=== PATIENT | female | born 1930 | race Caucasian/White ===

== ENCOUNTER 2016-12-11 03:05 | Inpatient (IN) | payer MEDICARE, OTHER ==
[~2016-12-11] VITALS: Ht 160 cm; Wt 65.6 kg
[2016-12-11] MEDS ORDERED: FENO135C4 PO (03:24)
[2016-12-11] MEDS ORDERED: ASPI-515 PO (03:24)
[2016-12-11] MEDS ORDERED: METO25TA91 PO (03:24)
[2016-12-11] MEDS ORDERED: SIMV40TA3 PO (03:24)
[2016-12-11] MEDS ORDERED: SODIUM CHLORIDE 0.9% 1,000ML IVBOLUS ONE (03:30)
[2016-12-11] MEDS ORDERED: HYDROmorphone 1 MG/ML, 1ML IVPush PRN (03:30)
[2016-12-11] MEDS ORDERED: ONDANSETRON 2MG/ML, 2ML IVPush ONE (03:30)
[2016-12-11 03:54] LABS: ASPARTATE AMINO TRANSFERASE 28 U/L (15-37); BLOOD UREA NITROGEN 17 mg/dL (7-18)
[2016-12-11] MEDS ORDERED: HYDROmorphone 1 MG/ML, 1ML ONE (03:58)
[2016-12-11] MEDS ORDERED: ONDANSETRON 2MG/ML, 2ML ONE ×2 (03:58→07:00)
[2016-12-11] MEDS ORDERED: PLEASE ENTER ALLERGIES MC SCH ×2 (04:00)
[2016-12-11 04:01] LABS: IS PT STATUS REG ER OR PRE ER? YES
[2016-12-11] MEDS ORDERED: OMNIPAQUE 350 MG/ML, 100ML BOTTLE ONE (05:23)
[2016-12-11] MEDS: SODIUM CHLORIDE 0.9% 1,000ML IVBOLUS ONE ×2 (06:01→07:01)
[2016-12-11] MEDS ORDERED: SODIUM CHLORIDE 0.9% 1,000 ML IV ONE (06:45)
[2016-12-11] MEDS ORDERED: MORPHINE SULFATE 4 MG/ML, 1ML IVPush PRN (07:00)
[2016-12-11] MEDS ORDERED: ONDANSETRON 2MG/ML, 2ML IVPush PRN (07:00)
[2016-12-11] MEDS ORDERED: PIPERACILLIN/TAZO/PMX 3.375GM 50 ML IVPB ONE (07:00)
[2016-12-11 08:30] VITALS: BP 176/86
[2016-12-11] MEDS ORDERED: ENALAPRILAT 1.25 MG/ML, 2ML IVPush PRN (08:30)
[2016-12-11] MEDS ORDERED: LABETALOL 5MG/ML, 20ML IV PRN (08:30)
[2016-12-11] MEDS ORDERED: ONDANSETRON 2MG/ML, 2ML IVP PRN (08:30)
[2016-12-11 10:11] LABS: IS PT STATUS REG ER OR PRE ER? NO
[2016-12-11] MEDS: SODIUM CHLORIDE 0.9% 1,000 ML IV SCH ×2 (10:42→21:24)
[2016-12-11] MEDS: HYDROmorphone 2 MG/ML, 1ML IV PRN ×2 (10:42→17:37)
[2016-12-11] MEDS: METOPROLOL 1 MG/ML, 5ML IVPush SCH ×3 (10:42→21:24)
[2016-12-11] MEDS: ENOXAPARIN 40 MG/0.4 ML SQ SCH (10:42)
[2016-12-11] MEDS: PIPERACILLIN/TAZO/PMX 3.375GM 50 ML IV SCH ×3 (11:05→21:24)
[2016-12-11 13:44] VITALS: BP 132/76
[2016-12-11 14:46] LABS: IS PT STATUS REG ER OR PRE ER? NO
[2016-12-11 20:03] VITALS: BP 131/76
[2016-12-12 02:50] VITALS: BP 125/75
[2016-12-12] MEDS: PIPERACILLIN/TAZO/PMX 3.375GM 50 ML IV SCH ×5 (05:10→21:23)
[2016-12-12] MEDS: METOPROLOL 1 MG/ML, 5ML IVPush SCH ×5 (05:11→21:23)
[2016-12-12] MEDS: HYDROmorphone 2 MG/ML, 1ML IV PRN ×2 (05:56→15:29)
[2016-12-12 06:38] LABS: ASPARTATE AMINO TRANSFERASE 41 U/L (15-37); BLOOD UREA NITROGEN 21 mg/dL (7-18)
[2016-12-12 07:10] VITALS: BP 105/66
[2016-12-12] MEDS: SODIUM CHLORIDE 0.9% 1,000 ML IV SCH ×2 (10:17→21:25)
[2016-12-12] MEDS: ENOXAPARIN 40 MG/0.4 ML SQ SCH (10:18)
[2016-12-12 14:29] VITALS: BP 135/76
[2016-12-12 20:37] VITALS: BP 119/75
[2016-12-13 01:38] VITALS: BP 98/62
[2016-12-13] MEDS: PIPERACILLIN/TAZO/PMX 3.375GM 50 ML IV SCH ×3 (03:06→15:03)
[2016-12-13] MEDS: METOPROLOL 1 MG/ML, 5ML IVPush SCH ×4 (05:28→21:58)
[2016-12-13 06:38] LABS: BLOOD UREA NITROGEN 52 mg/dL (7-18)
[2016-12-13 06:42] LABS: ASPARTATE AMINO TRANSFERASE 295 U/L (15-37)
[2016-12-13 06:50] VITALS: BP 92/47
[2016-12-13] MEDS: HYDROmorphone 2 MG/ML, 1ML IV PRN ×2 (09:55→15:07)
[2016-12-13] MEDS: ENOXAPARIN 30 MG/0.3 ML SQ SCH (09:55)
[2016-12-13 11:58] VITALS: BP 94/56
[2016-12-13 12:13] LABS: BLOOD UREA NITROGEN 55 mg/dL (7-18)
[2016-12-13 12:42] VITALS: BP 96/60
[2016-12-13] MEDS: SODIUM CHLORIDE 0.9% 1,000 ML IV SCH (15:03)
[2016-12-13 20:25] VITALS: BP 103/52
[2016-12-13] MEDS: PIPERACILLIN/TAZO/PMX 2.25GM 50 ML IV SCH (23:14)
[2016-12-14] MEDS: HYDROmorphone 2 MG/ML, 1ML IV PRN ×4 (00:15→17:28)
[2016-12-14] MEDS: SODIUM CHLORIDE 0.9% 1,000 ML IV SCH (02:28)
[2016-12-14 02:39] VITALS: BP 101/61
[2016-12-14] MEDS: METOPROLOL 1 MG/ML, 5ML IVPush SCH ×4 (05:59→22:23)
[2016-12-14 06:26] LABS: BLOOD UREA NITROGEN 59 mg/dL (7-18)
[2016-12-14 06:29] LABS: ASPARTATE AMINO TRANSFERASE 263 U/L (15-37)
[2016-12-14 07:27] VITALS: BP 114/68
[2016-12-14] MEDS: PIPERACILLIN/TAZO/PMX 2.25GM 50 ML IV SCH ×2 (08:25→17:28)
[2016-12-14] MEDS ORDERED: SODIUM CHLORIDE 0.45% 1,000 ML IV SCH (08:30)
[2016-12-14] MEDS: ENOXAPARIN 30 MG/0.3 ML SQ SCH (12:03)
[2016-12-14 14:15] VITALS: BP 121/69
[2016-12-14 17:25] VITALS: BP 115/65
[2016-12-14] MEDS: SODIUM CHLORIDE 0.45% 1,000 ML IV SCH (17:29)
[2016-12-14 19:07] VITALS: BP 111/64
[2016-12-15] MEDS: SODIUM CHLORIDE 0.45% 1,000 ML IV SCH ×2 (00:54→09:39)
[2016-12-15] MEDS: PIPERACILLIN/TAZO/PMX 2.25GM 50 ML IV SCH ×4 (00:54→23:29)
[2016-12-15] MEDS: HYDROmorphone 2 MG/ML, 1ML IV PRN (00:54)
[2016-12-15 01:20] VITALS: BP 101/56
[2016-12-15] MEDS: METOPROLOL 1 MG/ML, 5ML IVPush SCH ×2 (05:45→11:00)
[2016-12-15 06:24] LABS: ASPARTATE AMINO TRANSFERASE 134 U/L (15-37); BLOOD UREA NITROGEN 46 mg/dL (7-18)
[2016-12-15 08:55] VITALS: BP 138/76
[2016-12-15] MEDS: ENOXAPARIN 40 MG/0.4 ML SQ SCH (09:38)
[2016-12-15 13:28] VITALS: BP 135/66
[2016-12-15] MEDS: OXYcodone IR 5MG TABLET PO PRN ×3 (13:32→21:10)
[2016-12-15] MEDS ORDERED: HYDROmorphone 2 MG/ML, 1ML IV PRN (17:30)
[2016-12-15 19:19] VITALS: BP 121/71
[2016-12-16 01:59] VITALS: BP 123/71
[2016-12-16] MEDS: PIPERACILLIN/TAZO/PMX 2.25GM 50 ML IV SCH ×3 (05:00→20:24)
[2016-12-16 05:40] LABS: ASPARTATE AMINO TRANSFERASE 79 U/L (15-37); BLOOD UREA NITROGEN 29 mg/dL (7-18)
[2016-12-16] MEDS ORDERED: BUPIVACAINE/PF 0.25% ONE (06:04)
[2016-12-16 06:30] VITALS: BP 125/75
[2016-12-16] MEDS ORDERED: FENTANYL PF 250 MCG/5ML ONE (07:31)
[2016-12-16] MEDS ORDERED: POTASSIUM CHLORIDE 20 MEQ in SODIUM CHLORIDE 0.9% 250 ML IV ONE (08:30)
[2016-12-16] MEDS ORDERED: SODIUM CHLORIDE 0.45% 1,000 ML IV SCH (08:30)
[2016-12-16] MEDS ORDERED: METOPROLOL 1 MG/ML, 5ML IV PRN (09:00)
[2016-12-16] MEDS ORDERED: EPHEDRINE 50 MG/ML, 1ML IVPush PRN (09:00)
[2016-12-16] MEDS: METOPROLOL SUCCINATE 25 MG TAB.ER.24H PO SCH (10:01)
[2016-12-16] MEDS: ENOXAPARIN 40 MG/0.4 ML SQ SCH (10:01)
[2016-12-16] MEDS ORDERED: MAGNESIUM SULFATE PMX 2GM/50ML 50 ML IV ONE ×2 (11:00→11:30)
[2016-12-16] MEDS: OXYcodone IR 5MG TABLET PO PRN (13:07)
[2016-12-16 13:27] VITALS: BP 133/77
[2016-12-16] MEDS ORDERED: FUROSEMIDE 20 MG/2 ML IV ONE (15:00)
[2016-12-16 19:27] VITALS: BP 137/85
[2016-12-16] MEDS: AZOPT EACHEYE SCH (20:27)
[2016-12-16] MEDS: TEMPLATE NON-FORMULARY MED. (Lumigan 1 DROP) EACHEYE SCH (20:27)
[2016-12-16] MEDS: COMBIGAN EACHEYE SCH (20:27)
[2016-12-17] MEDS: PIPERACILLIN/TAZO/PMX 2.25GM 50 ML IV SCH ×4 (02:46→21:01)
[2016-12-17 03:22] VITALS: BP 119/65
[2016-12-17 05:28] LABS: BLOOD UREA NITROGEN 21 mg/dL (7-18)
[2016-12-17 05:33] LABS: ASPARTATE AMINO TRANSFERASE 56 U/L (15-37)
[2016-12-17 07:27] VITALS: BP 134/74
[2016-12-17] MEDS ORDERED: POTASSIUM CHLORIDE 20 MEQ TAB.ER.PRT PO ONE (07:30)
[2016-12-17] MEDS ORDERED: SODIUM CHLORIDE 0.45% 1,000 ML IV SCH (08:30)
[2016-12-17] MEDS: AZOPT EACHEYE SCH ×2 (08:49→21:00)
[2016-12-17] MEDS: COMBIGAN EACHEYE SCH ×2 (08:49→20:57)
[2016-12-17] MEDS: ENOXAPARIN 40 MG/0.4 ML SQ SCH (08:50)
[2016-12-17] MEDS: METOPROLOL SUCCINATE 25 MG TAB.ER.24H PO SCH (08:50)
[2016-12-17 15:08] VITALS: BP 132/77
[2016-12-17] MEDS: POTASSIUM CHLORIDE 10% 40 MEQ/30 ML UDC PO SCH ×2 (15:15→22:00)
[2016-12-17] MEDS: SODIUM CHLORIDE 0.45% 1,000 ML IV SCH (15:16)
[2016-12-17 19:06] VITALS: BP 135/86
[2016-12-17] MEDS: TEMPLATE NON-FORMULARY MED. (Lumigan 1 DROP) EACHEYE SCH (21:00)
[2016-12-18 00:36] VITALS: BP 131/81
[2016-12-18] MEDS: PIPERACILLIN/TAZO/PMX 2.25GM 50 ML IV SCH ×4 (03:18→22:03)
[2016-12-18 06:02] LABS: BLOOD UREA NITROGEN 18 mg/dL (7-18)
[2016-12-18 06:50] VITALS: BP 150/83
[2016-12-18] MEDS: ENOXAPARIN 40 MG/0.4 ML SQ SCH (08:43)
[2016-12-18] MEDS: POTASSIUM CHLORIDE 10% 40 MEQ/30 ML UDC PO SCH ×2 (08:44→22:18)
[2016-12-18] MEDS: AZOPT EACHEYE SCH ×2 (08:45→22:13)
[2016-12-18] MEDS: COMBIGAN EACHEYE SCH ×2 (08:45→22:13)
[2016-12-18] MEDS: METOPROLOL SUCCINATE 25 MG TAB.ER.24H PO SCH (08:45)
[2016-12-18 12:38] VITALS: BP 120/76
[2016-12-18] MEDS: SODIUM CHLORIDE 0.45% 1,000 ML IV SCH (14:54)
[2016-12-18 18:26] LABS: DAU SCREEN DISCLAIMER
[2016-12-18 18:38] LABS: PATH.CAST-FLAG NOT PRESENT; SPERM-FLAG NOT PRESENT; SRC-FLAG NOT PRESENT; XTAL-FLAG NOT PRESENT; YLC-FLAG NOT PRESENT
[2016-12-18 19:19] VITALS: BP 138/96
[2016-12-18] MEDS: TEMPLATE NON-FORMULARY MED. (Lumigan 1 DROP) EACHEYE SCH (22:13)
[2016-12-19] MEDS: PIPERACILLIN/TAZO/PMX 2.25GM 50 ML IV SCH ×2 (03:00→09:59)
[2016-12-19 03:03] VITALS: BP 132/75
[2016-12-19 05:33] LABS: BLOOD UREA NITROGEN 14 mg/dL (7-18)
[2016-12-19 05:36] LABS: ASPARTATE AMINO TRANSFERASE 60 U/L (15-37)
[2016-12-19] MEDS ORDERED: BUPIVACAINE/PF 0.25% ONE (06:16)
[2016-12-19] MEDS: SODIUM CHLORIDE 0.45% 1,000 ML IV SCH (06:18)
[2016-12-19] MEDS ORDERED: FENTANYL PF 250 MCG/5ML ONE (06:48)
[2016-12-19] MEDS ORDERED: MIDAZOLAM 1 MG/ML, 2ML ONE (06:48)
[2016-12-19 07:04] VITALS: BP 150/82
[2016-12-19] MEDS ORDERED: PROPOFOL 10 MG/ML, 20ML ONE (07:51)
[2016-12-19] MEDS ORDERED: CEFAZOLIN 1,000 MG ONE (07:51)
[2016-12-19] MEDS ORDERED: ROCURONIUM 10 MG/ML ONE (07:51)
[2016-12-19] MEDS: COMBIGAN EACHEYE SCH ×2 (09:00→20:01)
[2016-12-19] MEDS: AZOPT EACHEYE SCH ×2 (09:00→20:01)
[2016-12-19] MEDS: ENOXAPARIN 40 MG/0.4 ML SQ SCH (10:00)
[2016-12-19] MEDS ORDERED: ONDANSETRON 2MG/ML, 2ML IV PRN (10:30)
[2016-12-19] MEDS ORDERED: morphine SULFATE 10 MG/ML, 1ML IV PRN (10:30)
[2016-12-19] MEDS: METOPROLOL SUCCINATE 25 MG TAB.ER.24H PO SCH (10:45)
[2016-12-19] MEDS: POTASSIUM CHLORIDE 20 MEQ in D5%-0.45% NACL 1,000 ML IV SCH (12:02)
[2016-12-19 12:50] VITALS: BP 126/71
[2016-12-19] MEDS: HYDROcodone/APAP 5/325 TABLET PO PRN (16:59)
[2016-12-19] MEDS: TEMPLATE NON-FORMULARY MED. (Lumigan 1 DROP) EACHEYE SCH (20:01)
[2016-12-19 20:32] VITALS: BP 119/69
[2016-12-20 01:45] VITALS: BP 123/70
[2016-12-20] MEDS: POTASSIUM CHLORIDE 20 MEQ in D5%-0.45% NACL 1,000 ML IV SCH ×2 (02:29→15:45)
[2016-12-20 05:31] LABS: ASPARTATE AMINO TRANSFERASE 103 U/L (15-37); BLOOD UREA NITROGEN 8 mg/dL (7-18)
[2016-12-20 07:17] VITALS: BP 132/89
[2016-12-20] MEDS: COMBIGAN EACHEYE SCH ×2 (09:00→21:00)
[2016-12-20] MEDS: AZOPT EACHEYE SCH ×2 (09:00→21:00)
[2016-12-20] MEDS: METOPROLOL SUCCINATE 25 MG TAB.ER.24H PO SCH (09:19)
[2016-12-20] MEDS: ENOXAPARIN 40 MG/0.4 ML SQ SCH (09:20)
[2016-12-20] MEDS: HYDROcodone/APAP 5/325 TABLET PO PRN (12:19)
[2016-12-20 13:02] VITALS: BP 129/73
[2016-12-20 19:02] VITALS: BP 133/77
[2016-12-20] MEDS: TEMPLATE NON-FORMULARY MED. (Lumigan 1 DROP) EACHEYE SCH (21:00)
[2016-12-21 01:27] VITALS: BP 122/69
[2016-12-21] MEDS: HYDROcodone/APAP 5/325 TABLET PO PRN ×2 (04:58→17:04)
[2016-12-21 05:59] LABS: ASPARTATE AMINO TRANSFERASE 76 U/L (15-37); BLOOD UREA NITROGEN 6 mg/dL (7-18)
[2016-12-21 08:22] VITALS: BP 131/75
[2016-12-21] MEDS: COMBIGAN EACHEYE SCH (09:00)
[2016-12-21] MEDS: AZOPT EACHEYE SCH (09:00)
[2016-12-21] MEDS: METOPROLOL SUCCINATE 25 MG TAB.ER.24H PO SCH (09:30)
[2016-12-21] MEDS: ENOXAPARIN 40 MG/0.4 ML SQ SCH (09:30)
[2016-12-21 14:50] VITALS: BP 145/80
[2016-12-21] MEDS ORDERED: HYDR-3240 PO (15:12)
== END 2016-12-21 17:13 | DRG 417 ==
LOC: ED 05:00 → EDIP 06:46 → 4EST 08:39
PROVIDERS: ADMIT Internal Medicine; ATTEND Internal Medicine
PROC: 0T9B70Z Drainage of Bladder with Drainage Device, Via Natural or Artificial Opening (ICD-10-PCS; 2016-12-11)
PROC: 0FJ4XZZ Inspection of Gallbladder, External Approach (ICD-10-PCS; 2016-12-16)
PROC: 0FT44ZZ Resection of Gallbladder, Percutaneous Endoscopic Approach (ICD-10-PCS; principal; 2016-12-19 08:15)
DX: K85.10 Biliary acute pancreatitis without necrosis or infection (principal); E43 Unspecified severe protein-calorie malnutrition; G93.40 Encephalopathy, unspecified; J81.0 Acute pulmonary edema; K80.00 Calculus of gallbladder with acute cholecystitis without obstruction; E87.0 Hyperosmolality and hypernatremia; E87.2 Acidosis; N17.9 Acute kidney failure, unspecified; I10 Essential (primary) hypertension; E78.5 Hyperlipidemia, unspecified; D64.9 Anemia, unspecified; E87.6 Hypokalemia; E87.8 Other disorders of electrolyte and fluid balance, not elsewhere classified; I08.1 Rheumatic disorders of both mitral and tricuspid valves; H04.129 Dry eye syndrome of unspecified lacrimal gland; I25.10 Atherosclerotic heart disease of native coronary artery without angina pectoris; I48.0 Paroxysmal atrial fibrillation; I71.4 Abdominal aortic aneurysm, without rupture; Z96.653 Presence of artificial knee joint, bilateral; Z87.891 Personal history of nicotine dependence; Z98.61 Coronary angioplasty status; Z68.25 Body mass index [BMI] 25.0-25.9, adult; Z88.5 Allergy status to narcotic agent; Z90.49 Acquired absence of other specified parts of digestive tract; Z79.899 Other long term (current) drug therapy; Z53.8 Procedure and treatment not carried out for other reasons
CPT/HCPCS: 36415; 70450; 71010; 74177; 76700; 80048; 80053; 80307; 81001; 81003; 82040; 82140; 82150; 82607; 83605; 83690; 83735; 84100; 84132; 84145; 84484; 85025; 85610; 87040; 87324; 88304; 93005; 93306; 96361; 96374; 96375; J0690; J1170; J1650; J2250; J2405; J2543; J2704; J3010; J3480; J3490; Q9967; J1940; J3475; J7030; J7050

== ENCOUNTER 2017-01-16 14:36 | Observation (INO) | payer MEDICARE ==
[~2017-01-16] VITALS: Ht 165.1 cm; Wt 51.5 kg
[~2017-01-16 14:36] MED LIST: ASPI-515 PO; FENO135C4 PO; HYDR-3240 PO; METO25TA91 PO; SIMV40TA3 PO
[2017-01-16] MEDS ORDERED: SODIUM CHLORIDE 0.9% 1,000 ML IV ONE (14:47)
[2017-01-16 15:13] LABS: ASPARTATE AMINO TRANSFERASE 22 U/L (15-37); BLOOD UREA NITROGEN 13 mg/dL (7-18)
[2017-01-16] MEDS ORDERED: DOCU100C8 PO (16:19)
[2017-01-16] MEDS ORDERED: CYAN100074 PO (16:19)
[2017-01-16] MEDS ORDERED: LORA2VIA PO (16:19)
[2017-01-16] MEDS ORDERED: BRIN10DR RIGHTEYE (16:19)
[2017-01-16] MEDS ORDERED: BRIM5DRO2 OP (16:19)
[2017-01-16] MEDS ORDERED: SENN8.6T4 PO (16:19)
[2017-01-16] MEDS ORDERED: OMEP20TA62 PO (16:19)
[2017-01-16] MEDS ORDERED: MULT-717 PO (16:19)
[2017-01-16] MEDS ORDERED: ACET325T21 PO (16:19)
[2017-01-16] MEDS ORDERED: CHOL20003 PO (16:19)
[2017-01-16] MEDS ORDERED: LEVO500T33 PO (16:19)
[2017-01-16] MEDS ORDERED: SIMV40TA3 PO (16:19)
[2017-01-16] MEDS ORDERED: ALBU2.5V NEB (16:19)
[2017-01-16] MEDS ORDERED: BIMA2.5D OP (16:19)
[2017-01-16] MEDS ORDERED: OMNIPAQUE 350 MG/ML, 100ML BOTTLE ONE (16:59)
[2017-01-16] MEDS ORDERED: POTASSIUM CHLORIDE 40 MEQ in SODIUM CHLORIDE 0.9% 500 ML IV ONE (17:00)
[2017-01-16] MEDS ORDERED: POTASSIUM CHLORIDE 20 MEQ in LACTATED RINGERS 1,000 ML IV SCH (18:25)
[2017-01-16] MEDS ORDERED: ACETAMINOPHEN 325 MG TABLET PO PRN (18:30)
[2017-01-16] MEDS ORDERED: ONDANSETRON 2MG/ML, 2ML IVPush PRN (18:30)
[2017-01-16] MEDS ORDERED: ENOXAPARIN 40 MG/0.4 ML SQ SCH (18:30)
[2017-01-16] MEDS ORDERED: LORazepam 2 MG/ML, 1ML IVPush PRN (18:30)
[2017-01-16] MEDS ORDERED: HYDROcodone/APAP 5/325 TABLET PO PRN (18:30)
[2017-01-16] MEDS ORDERED: LEVOFLOXACIN 500 MG TABLET PO SCH (18:30)
[2017-01-16 20:00] VITALS: BP 108/60
[2017-01-16] MEDS: BRINZOLAMIDE RIGHTEYE SCH (21:00)
[2017-01-16] MEDS: [UNRECOGNIZED DRUG - OTHER] OP SCH (21:00)
[2017-01-16] MEDS: BRIMONIDINE TARTRATE OP SCH (21:00)
[2017-01-16] MEDS: [UNRECOGNIZED DRUG - REMARK] MC SCH (21:00)
[2017-01-16] MEDS: TIMOLOL OP SCH (21:00)
[2017-01-16] MEDS ORDERED: BIMATOPROST OP SCH (21:00)
[2017-01-17 02:00] VITALS: BP 112/59
[2017-01-17 07:22] VITALS: BP 116/74
[2017-01-17] MEDS ORDERED: ASPIRIN 81 MG TABLET EC PO SCH (09:00)
[2017-01-17] MEDS: TIMOLOL OP SCH (09:00)
[2017-01-17] MEDS: [UNRECOGNIZED DRUG - OTHER] OP SCH (09:00)
[2017-01-17] MEDS: CYANOCOBALAMIN 1,000 MCG TABLET PO SCH (09:00)
[2017-01-17] MEDS ORDERED: SENNOSIDES 8.6 MG TABLET PO SCH (09:00)
[2017-01-17] MEDS ORDERED: OMEPRAZOLE 20 MG CAPSULE.DR PO SCH (09:00)
[2017-01-17] MEDS ORDERED: CHOLECALCIFEROL 1,000 UNIT TABLET PO SCH (09:00)
[2017-01-17] MEDS ORDERED: DOCUSATE 100 MG CAPSULE PO SCH (09:00)
[2017-01-17] MEDS: BRIMONIDINE TARTRATE OP SCH (09:00)
[2017-01-17] MEDS: [UNRECOGNIZED DRUG - REMARK] MC SCH (09:00)
[2017-01-17] MEDS ORDERED: METOPROLOL SUCCINATE 25 MG TAB.ER.24H PO SCH (09:00)
[2017-01-17] MEDS: BRINZOLAMIDE RIGHTEYE SCH (09:00)
[2017-01-17] MEDS ORDERED: TEMPLATE NON-FORMULARY MED. (Multivits-Min/Fa/Lycopene/Lut** (Centrum Silver Tablet**) 1 T PO SCH (09:00)
[2017-01-17 12:52] VITALS: BP 116/72
== END 2017-01-17 14:50 | disposition hospice, home (50) ==
LOC: ED 17:38 → EDIP 17:39 → INTOOBSV 17:39 → ED 18:07 → SUATTDRO 18:13 → 4WST 19:50
PROVIDERS: ADMIT Internal Medicine
DX: K86.3 Pseudocyst of pancreas (principal); K81.0 Acute cholecystitis; K85.90 Acute pancreatitis without necrosis or infection, unspecified; E43 Unspecified severe protein-calorie malnutrition; E87.6 Hypokalemia; E86.0 Dehydration; E78.5 Hyperlipidemia, unspecified; H40.9 Unspecified glaucoma; I11.9 Hypertensive heart disease without heart failure; I48.0 Paroxysmal atrial fibrillation; D68.69 Other thrombophilia; D64.9 Anemia, unspecified; I25.10 Atherosclerotic heart disease of native coronary artery without angina pectoris; I71.4 Abdominal aortic aneurysm, without rupture; Z90.49 Acquired absence of other specified parts of digestive tract
CPT/HCPCS: 36415; 74022; 74177; 80053; 81001; 83605; 83690; 83735; 85025; 87086; 96361; 96365; 96366; 96372; 99285; G0378; J1650; J3480; J7030; J7040; J7120; Q9967